=== PATIENT | male | born 1995 | race African-American/Black ===

== ENCOUNTER 2017-06-01 07:25 | Emergency (ER) | payer OTHER ==
[~2017-06-01] VITALS: Ht 172.7 cm; Wt 59.1 kg
[2017-06-01 08:12] LABS: BASO % 0.4 % (0.0-2.0); EOS # 0.1 (0.0-0.7); EOS % 1.6 % (0-4.0); GRAN # 2.2 (1.4-6.5); GRAN % 43.5 % (42.2-75.2); HEMATOCRIT 47.6 % (42.0-52.0); HEMOGLOBIN 15.9 g/dl (13.5-18.0); LYMPH # 2.4 (1.2-3.4); LYMPH % 46.3 % (20.0-51.0); MEAN CELL VOLUME 93 fl (80.0-100.0); MEAN CORPUSCULAR HEMOGLOBIN 31 pg (27.0-31.0); MEAN CORPUSCULAR HGB CONC 33 g/dl (33.0-37.0); MEAN PLATELET VOLUME 9.8 fl (7.4-10.4); MONO # 0.4 (0.1-0.6); PLATELET COUNT 274 K/mm3 (130-400); RED BLOOD COUNT 5.11 M/mm3 (4.20-5.60); WHITE BLOOD COUNT 5.1 K/mm3 (4.8-10.8)
[2017-06-01 08:28] LABS: ADJUSTED CALCIUM 8.9 mg/dL (8.4-10.2); ALANINE AMINOTRANSFERASE 32 U/L (21-72); ALBUMIN 5.3 gm/dL (3.5-5.0); ALKALINE PHOSPHATASE 73 U/L (50-136); ANION GAP 14 mmol/L (7-16); BILIRUBIN,TOTAL 1.1 mg/dL (0.0-1.0); BLOOD UREA NITROGEN 14 mg/dL (9-20); CALCIUM 9.9 mg/dL (8.4-10.2); CARBON DIOXIDE 25 mmol/L (22-30); CHLORIDE 104 mmol/L (98-107); CREATININE, serum 0.96 mg/dL (0.66-1.25); GLUCOSE 94 mg/dL (74-106); POTASSIUM 3.8 mmol/L (3.4-5.0); SODIUM 143 mmol/L (137-145); TOTAL PROTEIN 8.5 gm/dL (6.4-8.2)
[2017-06-01 08:29] LABS: C-REACTIVE PROTEIN < 0.5 mg/dL (0.0-0.9)
[2017-06-01 09:49] VITALS: BP 132/72; PULSE 90; TEMP 98.3
== END 2017-06-01 09:36 | disposition home or self-care (01) ==
LOC: COL.ER 07:25
PROVIDERS: Physician Assistant
DX: K59.00 Constipation, unspecified (principal); F12.90 Cannabis use, unspecified, uncomplicated; Z98.890 Other specified postprocedural states; Z83.79 Family history of other diseases of the digestive system

== ENCOUNTER 2017-07-31 18:12 | Emergency (ER) | payer OTHER ==
[~2017-07-31] VITALS: Ht 172.7 cm; Wt 60.9 kg
[2017-07-31 18:15] VITALS: BP 156/88; TEMP 98.7
[2017-07-31] MEDS ORDERED: NYQUIL GENERIC PO (18:30)
[2017-07-31] MEDS ORDERED: MUCINEX 60600 MG/TA1 PO (18:30)
[2017-07-31 19:52] VITALS: PULSE 96
== END 2017-07-31 19:52 | disposition home or self-care (01) ==
LOC: COL.ER 18:12
DX: R05 Cough (principal); Z98.890 Other specified postprocedural states

== ENCOUNTER 2017-10-19 17:12 | Emergency (ER) | payer OTHER ==
[~2017-10-19] VITALS: Ht 175.3 cm; Wt 61.4 kg
[~2017-10-19 17:12] MED LIST: MUCINEX 60600 MG/TA1 PO; NYQUIL GENERIC PO
[2017-10-19 17:24] VITALS: BP 152/80; TEMP 98.2
[2017-10-19 17:37] LABS: COLLECTION METHOD CLEAN CATCH
[2017-10-19 17:52] LABS: MUCOUS Present /lpf; PH 7 (5-8); SQUAMOUS EPITHELIAL 0-2 /hpf; URINE APPEARANCE Clear; URINE BACTERIA None Seen /hpf; URINE BILIRUBIN Negative (NEGATIVE); URINE BLOOD 1+ (NEGATIVE); URINE COLOR Yellow; URINE GLUCOSE Negative (NEGATIVE); URINE KETONE Negative (NEGATIVE); URINE LEUKOCYTE ESTERASE Trace (NEGATIVE); URINE NITRATE Negative (NEGATIVE); URINE PROTEIN(semi-quant) 1+ (NEGATIVE)
[2017-10-19 18:35] VITALS: PULSE 77
== END 2017-10-19 18:37 | disposition home or self-care (01) ==
LOC: COL.ER 17:12
PROVIDERS: Nurse Practitioner
DX: N30.00 Acute cystitis without hematuria (principal); Z98.890 Other specified postprocedural states
CPT/HCPCS: J0696

== ENCOUNTER 2017-10-29 10:37 | Emergency (ER) | payer OTHER ==
[~2017-10-29] VITALS: Ht 175.3 cm; Wt 61.4 kg
[2017-10-29 11:34] LABS: COLLECTION METHOD CLEAN CATCH
[2017-10-29 11:50] LABS: MUCOUS Present /lpf; PH 6 (5-8); SQUAMOUS EPITHELIAL 0-2 /hpf; URINE APPEARANCE Clear; URINE BACTERIA None Seen /hpf; URINE BILIRUBIN Negative (NEGATIVE); URINE BLOOD 1+ (NEGATIVE); URINE COLOR Yellow; URINE GLUCOSE Negative (NEGATIVE); URINE KETONE Negative (NEGATIVE); URINE LEUKOCYTE ESTERASE Trace (NEGATIVE); URINE NITRATE Negative (NEGATIVE); URINE PROTEIN(semi-quant) Negative (NEGATIVE)
[2017-10-29] MEDS ORDERED: CIPRO 500MG TA500 MG PO (13:26)
[2017-10-29 13:40] VITALS: BP 125/75; PULSE 70; TEMP 98
== END 2017-10-29 13:40 | disposition home or self-care (01) ==
LOC: COL.ER 10:37
PROVIDERS: Physician Assistant
DX: N39.0 Urinary tract infection, site not specified (principal); F17.210 Nicotine dependence, cigarettes, uncomplicated; F12.90 Cannabis use, unspecified, uncomplicated

== ENCOUNTER 2019-05-08 12:54 | Emergency (ER) | payer SELFPAY ==
[~2019-05-08] VITALS: Ht 175.3 cm; Wt 61.4 kg
[~2019-05-08 12:54] MED LIST changes: +CIPRO 500MG TA500 MG PO
[2019-05-08 12:59] VITALS: BP 135/85; TEMP 97.7
[2019-05-08 13:55] LABS: COLLECTION METHOD CLEAN CATCH
[2019-05-08 14:01] LABS: MUCOUS Present /lpf; PH 7 (5-8); SQUAMOUS EPITHELIAL 0-2 /hpf; URINE APPEARANCE Clear; URINE BACTERIA None Seen /hpf; URINE BILIRUBIN Negative (NEGATIVE); URINE BLOOD 1+ (NEGATIVE); URINE COLOR Yellow; URINE GLUCOSE Negative (NEGATIVE); URINE KETONE Negative (NEGATIVE); URINE LEUKOCYTE ESTERASE Negative (NEGATIVE); URINE NITRATE Negative (NEGATIVE); URINE PROTEIN(semi-quant) Negative (NEGATIVE); URINE RBC 0-2 /hpf; URINE UROBILINOGEN Negative (NEGATIVE)
[2019-05-08 14:40] VITALS: PULSE 79
== END 2019-05-08 14:40 | disposition home or self-care (01) ==
LOC: COL.ER 12:54
PROVIDERS: Physician Assistant
DX: R82.81 Pyuria (principal); Z87.891 Personal history of nicotine dependence; Z98.890 Other specified postprocedural states; Z20.2 Contact with and (suspected) exposure to infections with a predominantly sexual mode of transmission
CPT/HCPCS: J0696